=== PATIENT | male | born 2000 | race Caucasian/White ===

== ENCOUNTER 2021-05-07 21:09 | Emergency (ER) | payer SELFPAY ==
[2021-05-07] MEDS ORDERED: NS IV 1000 ML 1,000 ML IV STA (21:21)
[2021-05-07 21:25] LABS: BASOPHILS % (AUTO) 1 % (0-10); EOSINOPHILS # (AUTO) 0.2 10^3/uL (0.0-0.3); EOSINOPHILS % (AUTO) 2 % (0-10); HEMATOCRIT 45 % (40-54); HEMOGLOBIN 15.1 G/DL (13.3-17.7); LYMPHOCYTES # (AUTO) 2.1 X 10^3 (1.0-4.0); LYMPHOCYTES % (AUTO) 26 % (12-44); MEAN CORPUSCULAR HEMOGLOBIN 27 PG (25-34); MEAN CORPUSCULAR HGB CONC 34 G/DL (32-36); MEAN CORPUSCULAR VOLUME 81 FL (80-99); MEAN PLATELET VOLUME 9.1 FL (7.4-10.4); MONOCYTES # (AUTO) 0.9 X 10^3 (0.0-1.0); MONOCYTES % (AUTO) 10 % (0-12); NEUTROPHILS # (AUTO) 5.1 X 10^3 (1.8-7.8); NEUTROPHILS % (AUTO) 62 % (42-75); PLATELET COUNT 331 10^3/uL (130-400); WHITE BLOOD COUNT 8.3 10^3/uL (4.3-11.0)
--- NOTE | 2021-05-07 21:28 | ED General ---
General Stated Complaint: CHEST PAIN/HIH BP/HIGH PULSE Source of Information: Patient History of Present Illness Date Seen by Provider: May 07, 2021 Time Seen by Provider: 21:11 Initial Comments 20-year-old male presenting with complaints of not feeling well throughout the day and felt like his heart was racing this evening with pressure in his chest. He denies having a cough or congestion. He has not been feeling short of breath, nauseated, vomiting, diarrhea, headache, change in vision, sore throat, abdominal pain. He denies having symptoms like this before. He denies feeling dizzy or lightheaded. He usually drinks monster drinks but says he has not had one for a while. He usually works outdoors but today was just sitting at home. He denies any drug or alcohol use. He states that his mom had noticed the seem to be shaking and not feeling well earlier so this evening when he was not feeling well she made him come to the emergency department. The patient follows with a provider through [facility]. He denies taking any regular medications and denies any allergies to medicines. Associated Systoms: Chest Pain (Pressure like somebody is pushing on his chest); No Cough, No Diaphoresis, No Fever/Chills, No Headaches, No Loss of Appetite; Malaise; No Nausea/Vomiting, No Rash, No Seizure, No Shortness of Air, No Syncope, No Weakness Allergies and Home Medications Allergies Coded Allergies: No Known Drug Allergies (Unverified , 05/07/21) Patient Home Medication List Home Medication List Reviewed: Yes Review of Systems Review of Systems Constitutional: No chills, No fever EENTM: no symptoms reported Respiratory: no symptoms reported Cardiovascular: see HPI Gastrointestinal: no symptoms reported Genitourinary: no symptoms reported Musculoskeletal: no symptoms reported Skin: no symptoms reported Psychiatric/Neurological: No Symptoms Reported; Denies Headache, Denies Numbness Hematologic/Lymphatic: Denies Blood Clots Past Fwungvu-[id number]-[id number] Hx Past Med/Social Hx: Reviewed Nursing Past Med/Soc Hx Patient Social History Alcohol Use: Denies Use Type Used: Electronic/Vapor Past Medical History Surgeries: No Respiratory: No Cardiac: No Neurological: No Genitourinary: No Gastrointestinal: No Musculoskeletal: No Endocrine: No HEENT: No Cancer: No Psychosocial: No Integumentary: No Physical Exam Vital Signs Vital Signs - First Documented 05/07/21 21:11 Temp 36.5 Pulse 117 Resp 20 B/P (MAP) 135/86 (102) Pulse Ox 98 O2 Delivery Room Air Capillary Refill : Height, Weight, BMI Height: '" Weight: lbs. oz. kg; BMI Method: General Appearance: No Apparent Distress, WD/WN HEENT: PERRL/EOMI, Pharynx Normal Neck: Full Range of Motion, Normal Inspection, Non Tender, Supple Respiratory: Chest Non Tender, Lungs Clear, Normal Breath Sounds, No Accessory Muscle Use, No Respiratory Distress Cardiovascular: No Murmur, Normal Peripheral Pulses, Tachycardia Gastrointestinal: Normal Bowel Sounds, No Pulsatile Mass, Non Tender, Soft Rectal: Deferred Extremity: Normal Capillary Refill, Normal Inspection, Normal Range of Motion, Non Tender, No Calf Tenderness, No Pedal Edema Neurologic/Psychiatric: Alert, Oriented x3, compress engineer II-XII Norm as Tested Skin: Normal Color, Diaphoresis Progress/Results/Core Measures Suspected Sepsis SIRS Temperature: Pulse: Respiratory Rate: Laboratory Tests 05/07/21 21:20: White Blood Count 8.3 Blood Pressure / Mean: Laboratory Tests 05/07/21 21:20: Creatinine 1.01, INR Comment 1.0, Platelet Count 331, Total Bilirubin 0.3 Results/Orders Lab Results Laboratory Tests Test 05/07/21 21:20 05/07/21 21:22 Range/Units White Blood Count 8.3 4.3-11.0 10^3/uL Red Blood Count 5.55 4.35-5.85 10^6/uL Hemoglobin 15.1 13.3-17.7 G/DL Hematocrit 45 40-54 % Mean Corpuscular Volume 81 80-99 FL Mean Corpuscular Hemoglobin 27 25-34 PG Mean Corpuscular Hemoglobin Concent 34 32-36 G/DL Red Cell Distribution Width 13.2 10.0-14.5 % Platelet Count 331 130-400 10^3/uL Mean Platelet Volume 9.1 7.4-10.4 FL Immature Granulocyte % (Auto) 0 % Neutrophils (%) (Auto) 62 42-75 % Lymphocytes (%) (Auto) 26 12-44 % Monocytes (%) (Auto) 10 0-12 % Eosinophils (%) (Auto) 2 0-10 % Basophils (%) (Auto) 1 0-10 % Neutrophils # (Auto) 5.1 1.8-7.8 X 10^3 Lymphocytes # (Auto) 2.1 1.0-4.0 X 10^3 Monocytes # (Auto) 0.9 0.0-1.0 X 10^3 Eosinophils # (Auto) 0.2 0.0-0.3 10^3/uL Basophils # (Auto) 0.0 0.0-0.1 10^3/uL Immature Granulocyte # (Auto) 0.0 0.0-0.1 10^3/uL Prothrombin Time 13.0 12.2-14.7 SEC INR Comment 1.0 0.8-1.4 Activated Partial Thromboplast Time 28 24-35 SEC Urine Color YELLOW Urine Clarity CLEAR Urine pH 6.0 5-9 Urine Specific [place] 1.015 L 1.016-1.022 Urine Protein NEGATIVE NEGATIVE Urine Glucose (UA) NEGATIVE NEGATIVE Urine Ketones NEGATIVE NEGATIVE Urine Nitrite NEGATIVE NEGATIVE Urine Bilirubin NEGATIVE NEGATIVE Urine Urobilinogen 0.2 < = 1.0 MG/DL Urine Leukocyte Esterase NEGATIVE NEGATIVE Urine RBC (Auto) NEGATIVE NEGATIVE Urine RBC 0-2 /HPF Urine WBC NONE /HPF Urine Squamous Epithelial Cells 2-5 /HPF Urine Crystals NONE /LPF Urine Bacteria NEGATIVE /HPF Urine Casts NONE /LPF Urine Mucus NEGATIVE /LPF Urine Culture Indicated NO Sodium Level 138 135-145 MMOL/L Potassium Level 4.0 3.6-5.0 MMOL/L Chloride Level 103 98-107 MMOL/L Carbon Dioxide Level 27 21-32 MMOL/L Anion Gap 8 5-14 MMOL/L Blood Urea Nitrogen 11 7-18 MG/DL Creatinine 1.01 0.60-1.30 MG/DL Estimat Glomerular Filtration Rate > 60 BUN/Creatinine Ratio 11 Glucose Level 79 70-105 MG/DL Calcium Level 9.6 8.5-10.1 MG/DL Corrected Calcium 8.5-10.1 MG/DL Magnesium Level 2.0 1.6-2.4 MG/DL Total Bilirubin 0.3 0.1-1.0 MG/DL Aspartate Amino Transf (AST/SGOT) 22 5-34 U/L Alanine Aminotransferase (ALT/SGPT) 45 0-55 U/L Alkaline Phosphatase 113 40-136 U/L Total Protein 7.8 6.4-8.2 GM/DL Albumin 4.6 H 3.2-4.5 GM/DL Urine Opiates Screen NEGATIVE NEGATIVE Urine Oxycodone Screen NEGATIVE NEGATIVE Urine Methadone Screen NEGATIVE NEGATIVE Urine Propoxyphene Screen NEGATIVE NEGATIVE Urine Barbiturates Screen NEGATIVE NEGATIVE Ur Tricyclic Antidepressants Screen NEGATIVE NEGATIVE Urine Phencyclidine Screen NEGATIVE NEGATIVE Urine Amphetamines Screen NEGATIVE NEGATIVE Urine Methamphetamines Screen NEGATIVE NEGATIVE Urine Benzodiazepines Screen NEGATIVE NEGATIVE Urine Cocaine Screen NEGATIVE NEGATIVE Urine Cannabinoids Screen NEGATIVE NEGATIVE Serum Alcohol < 10 <10 MG/DL Troponin I < 0.30 <0.30 NG/ML Pro-B-Type Natriuretic Peptide < 5.0 <75.0 PG/ML My Orders Orders - MELODY ORTIZ MD Cbc With Automated Diff (05/07/21 21:19) Magnesium (05/07/21 21:19) Chest 1 View Ap/Pa Only (05/07/21 21:19) Ekg Tracing (05/07/21 21:19) Comprehensive Metabolic Panel (05/07/21 21:19) Protime With Inr (05/07/21 21:19) Partial Thromboplastin Time (05/07/21 21:19) O2 (05/07/21 21:19) Monitor-Rhythm Ecg Trace Only (05/07/21 21:19) Ed Iv/Invasive Line Start (05/07/21 21:19) Troponin I Fs (05/07/21 21:19) Probnp Fs (05/07/21 21:19) Ua Culture If Indicated (05/07/21 21:19) Drug Screen Stat (Urine) (05/07/21 21:19) Alcohol (05/07/21 21:19) Ns Iv 1000 Ml (Sodium Chloride 0.9%) (05/07/21 21:21) Vital Signs/I&O 05/07/21 05/07/21 21:11 22:33 Temp 36.5 Pulse 117 103 Resp 20 18 B/P (MAP) 135/86 (102) 127/84 (102) Pulse Ox 98 98 O2 Delivery Room Air Room Air Capillary Refill : Progress Note #1: Progress Note Check labs and electrocardiogram with chest x-ray. Give IV fluids for hydration with his tachycardia. Cardiac telemetry monitoring shows sinus tachycardia without ectopy or ST elevation. Electrocardiogram also shows sinus tachycardia without ST elevation or ischemia. Patient denies alcohol or drug use and states he has not had any caffeine today. Will check for alcohol and drugs in his system with his age and elevation of his blood pressure and no other reason for him to have symptoms to ensure he does not have drugs or alcohol causing his symptoms. Differential diagnosis includes undiagnosed hypertension, dehydration, substance abuse, anxiety, cardiac arrhythmia Progress Note #2: Time: 21:54 Progress Note Labs all stable without acute significant abnormality. CXR clear and ECG shows sinus tachycardia but no ischemia. UA clear and UDS does not show any drugs in his system. Alcohol level also negative. Progress Note #3: Time: : Progress Note Updated patient and mother about test results and findings. Patient states he does feel better after fluids have infused. He reports that he has been in a hot environment at home as well as in and out of the house. He likely has some dehydration contributing to his symptoms. A follow-up with the clinic would be helpful as the family was also questioning diabetes or thyroid disease. So far his labs here did not indicate any diabetes and he had improvement with hydration so thyroid disease is less likely since he was responding to fluids. However blood work and testing could help to rule that out more completely ECG Initial ECG Impression Date: May 07, 2021 Initial ECG Impression Time: 21:11 Initial ECG Rate: 102 Initial ECG Rhythm: S.Tach Initial ECG Comparisson: No Previous ECG Available Comment Sinus tachycardia with a heart rate of 102 bpm. MN interval [address] elevation. QT interval 314 ms with a QTc interval 409 ms. No prior tracing available for comparison. Diagnostic Imaging Diagonstic Imaging: Xray Plain Films/CT/US/NM/MRI: chest Comments NAME: JIAN SIMENTAL MED REC#: [id number] PT STATUS: REG ER : 2000 PHYSICIAN: MELODY ORTIZ MD ADMIT DATE: 05/07/21/ER FS Draft Date of Exam:05/07/21 CHEST 1 VIEW AP/PA ONLY EXAMINATION: Chest 1 view. HISTORY: Chest pressure, palpitations. COMPARISON: None available. FINDINGS: The lungs are clear without edema or pneumonia. No pleural effusion or pneumothorax. Heart size is normal. IMPRESSION: Clear lungs. Dictated on workstation # [id number] Dict: 05/07/212131 Trans: 05/07/212133 [facility] [id number] Interpreted by: TALIA SCHROEDER MD Electronically signed by: Departure Impression Primary Impression: Heart palpitations Additional Impressions: Chest pressure Dehydration Disposition: 01 HOME, SELF-CARE Condition: Stable Departure-Patient Inst. Decision time for Depature: 22:32 Referrals: NO,LOCAL PHYSICIAN (PCP/Family) Primary Care Physician Patient Instructions: Palpitations (DC), Chest Pain, Adult ED, Dehydration, Adult ED Add. Discharge Instructions: Stay well hydrated and make sure you are drinking plenty of water. Check with clinic for continued symptoms and more concerns. MELODY ORTIZ MD May 07, 2021 21:28
--- NOTE | 2021-05-07 21:34 | Diagnostic Imaging Report ---
EXAMINATION: Chest 1 view. HISTORY: Chest pressure, palpitations. COMPARISON: None available. FINDINGS: The lungs are clear without edema or pneumonia. No pleural effusion or pneumothorax. Heart size is normal. IMPRESSION: Clear lungs. Dictated by: Dictated on workstation # [id number]
[2021-05-07 21:35] LABS: CLARITY,URINE CLEAR; COLOR,URINE YELLOW
[2021-05-07 21:36] LABS: BACTERIA,URINE NEGATIVE /HPF; BILIRUBIN,URINE NEGATIVE (NEGATIVE); GLUCOSE, URINE (UA) NEGATIVE (NEGATIVE); KETONES,URINE NEGATIVE (NEGATIVE); LEUKOCYTE ESTERASE ,URINE NEGATIVE (NEGATIVE); NITRITE,URINE NEGATIVE (NEGATIVE); PROTEIN,URINE NEGATIVE (NEGATIVE); RBC,URINE 0-2 /HPF
[2021-05-07 21:43] LABS: AMPHETAMINE SCREEN, URINE NEGATIVE (NEGATIVE); BARBITURATE SCREEN URINE NEGATIVE (NEGATIVE); BENZODIAZEPINES SCREEN URINE NEGATIVE (NEGATIVE); CANNABINOID SCREEN, URINE NEGATIVE (NEGATIVE); COCAINE SCREEN URINE NEGATIVE (NEGATIVE); METHADONE STAT NEGATIVE (NEGATIVE); METHAMPHETAMINE SCREEN URINE S NEGATIVE (NEGATIVE); OPIATE SCREEN URINE NEGATIVE (NEGATIVE); OXYCODONE STAT NEGATIVE (NEGATIVE); PROPOXYPHENE STAT NEGATIVE (NEGATIVE); TRICYCLIC ANTIDEPRESSANTS SCRE NEGATIVE (NEGATIVE)
[2021-05-07 21:44] LABS: ALANINE AMINOTRANSFERASE 45 U/L (0-55); ALBUMIN 4.6 GM/DL (3.2-4.5); ALKALINE PHOSPHATASE 113 U/L (40-136); BILIRUBIN,TOTAL 0.3 MG/DL (0.1-1.0); BUN/CREATININE RATIO 11; CALCIUM 9.6 MG/DL (8.5-10.1); CARBON DIOXIDE 27 MMOL/L (21-32); CHLORIDE 103 MMOL/L (98-107); CREATININE SERUM 1.01 MG/DL (0.60-1.30); GFR ESTIMATED > 60; GLUCOSE 79 MG/DL (70-105); SODIUM 138 MMOL/L (135-145); TOTAL PROTEIN 7.8 GM/DL (6.4-8.2)
[2021-05-07 22:33] VITALS: BP 127/84
== END 2021-05-07 22:34 | disposition home or self-care (01) ==
LOC: ER FS 21:14
DX: R00.2 Palpitations (principal); R07.89 Other chest pain; E86.0 Dehydration
CPT/HCPCS: 36415; 71045; 80053; 80306; 81000; 83735; 83880; 84484; 85025; 85610; 85730; 93005; 93041; 99284; G0480; 80320